=== PATIENT | female | born 1950 | race Caucasian/White ===

== ENCOUNTER 2016-09-23 21:36 | Emergency (ER) | payer MEDICAID ==
[2016-09-23 22:01] VITALS: O2SAT 95
--- NOTE | 2016-09-23 22:13 | ERPHSYRPT ---
- History of Present Illness Time Seen by Provider: 09/23/16 22:09 Source: patient, family Exam Limitations: no limitations Patient Subjective Stated Complaint: per pt's daughter, pt hasnt been eating well since her 1 week ago and has had a recent diagnosis of stage 4 ca 3 weeks ago. has been getting progressively weaker. states pt has not been eating or drinking at all today. Triage Nursing Assessment: pt awake. does not answer questions. is cooperative but delayed. pt ambulate from wheelchair to stretcher with assist of 2. very unstedy gait and unable to get on stretcher by herself. respirations nonlabored with lungs cta. +2 edema to bilat feet and ankles. Physician History: pt is 66 years old with metastatic breast cancer and recent loss of family members and has decreased intake today no n/v or fever , no shortness of breath abd is nontender; she is slow to resond to questions but can follow commands and has no focal neuro deficits. this has been going on several days now. Timing/Duration: day(s) Severity: mild Associated Symptoms: loss of appetite, malaise Allergies/Adverse Reactions: No Known Drug Allergies Allergy (Unverified 09/23/16 22:01) Home Medications: Ferrous Sulfate [Iron] 325 mg PO DAILY 09/23/16 [History] Levothyroxine Sodium 50 Mcg [Synthroid 50 Mcg] 50 mcg PO DAILY 09/23/16 [ History] Mirtazapine [Remeron] 15 mg PO HS 09/23/16 [History] Tramadol HCl 50 mg [Ultram 50 mg] 50 mg PO Q6H PRN PRN 09/23/16 [History] Hx Tetanus, Diphtheria Vaccination/Date Given: No (unknown) Hx Influenza Vaccination/Date Given: Yes Hx Pneumococcal Vaccination/Date Given: No (unknown) Immunizations Up to Date: No (unknown) - Review of Systems Constitutional: Fatigue, Malaise, No Fever, No Chills Eyes: No Symptoms Ears, Nose, & Throat: No Symptoms Respiratory: No Cough, No Dyspnea Cardiac: No Chest Pain, No Edema, No Syncope Abdominal/Gastrointestinal: Appetite Changes, No Abdominal Pain, No Nausea, No Vomiting, No Diarrhea Genitourinary Symptoms: No Dysuria Musculoskeletal: No Back Pain, No Neck Pain Skin: No Rash Neurological: No Dizziness, No Focal Weakness, No Sensory Changes Psychological: No Symptoms Endocrine: No Symptoms All Other Systems: Reviewed and Negative - Past Medical History Pertinent Past Medical History: Yes Respiratory History: Lung Cancer Endocrine Medical History: Thyroid Cancer GI Medical History: Colorectal Cancer Female Reproductive Disorders: Breast Cancer Other Medical History: anemia - Past Surgical History Past Surgical History: Yes Female Surgical History: Section Other Surgical History: port placement approx 2 weeks ago - Social History Smoking Status: Never smoker Exposure to second hand smoke: Yes Drug Use: none Patient Lives Alone: Yes - Nursing Vital Signs Nursing Vital Signs: Initial Vital Signs Temperature 98.3 F Temperature Source Oral Pulse Rate 87 Respiratory Rate 16 Blood Pressure [] 123/48 - Physical Exam General Appearance: no apparent distress, alert Eye Exam: PERRL/EOMI, eyes nml inspection Ears, Nose, Throat Exam: normal ENT inspection, TMs normal, pharynx normal, moist mucous membranes Neck Exam: normal inspection, non-tender, supple, full range of motion Respiratory Exam: normal breath sounds, lungs clear, No respiratory distress Cardiovascular Exam: regular rate/rhythm, normal heart sounds, normal peripheral pulses Gastrointestinal/Abdomen Exam: soft, normal bowel sounds, No tenderness, No mass Pelvic Exam: deferred Rectal Exam: deferred Back Exam: normal inspection, normal range of motion, No CVA tenderness, No vertebral tenderness Extremity Exam: normal inspection, normal range of motion, pelvis stable Neurologic Exam: alert, oriented x 3, cooperative, normal mood/affect, nml cerebellar function, nml station & gait, sensation nml, No motor deficits Skin Exam: normal color, warm, dry, No rash Lymphatic Exam: No adenopathy SpO2: 95 Oxygen Delivery: Room Air - Course Nursing assessment & vital signs reviewed: Yes EKG Interpreted by Me: Sinus Rhythm, NORMAL AXIS, LAFB, Non-specific ST Changes - Radiology Exams Chest X-ray Interpretation: Reviewed by me, Other (effusions) Abdomen X-ray Interpretation: Reviewed by me, Other (scattered bowel gas pattern) Ordered Tests: Active Orders 24 hr Category Date Time Status EKG-ER Only STAT Care 09/23/16 22:13 Active IV Insertion STAT Care 09/23/16 22:13 Active PO Fluid Challenge STAT Care 09/23/16 22:21 Active OBSTR/ACUTE ABDOMEN SERIES Stat Exams 09/23/16 22:17 Taken AMYLASE Stat Lab 09/23/16 22:33 Completed CBC W DIFF Stat Lab 09/23/16 22:33 Completed CMP Stat Lab 09/23/16 22:33 Completed LIPASE Stat Lab 09/23/16 22:33 Completed Lactic Acid Urgent Lab 09/23/16 22:30 Completed MAGNESIUM Stat Lab 09/23/16 22:33 Completed TROPONIN Stat Lab 09/23/16 22:33 Completed UA Stat Lab 09/23/16 23:02 Completed Medication Summary Generic Name Dose Route Start Last Admin Trade Name Freq PRN Reason Stop Dose Admin Sodium Chloride 1,000 mls @ 100 mls/hr 09/23/16 22:15 09/23/16 22:37 Sodium Chloride 0.9% 1000 Ml IV 10/23/16 22:14 100 mls/hr .Q10H MARIA EUGENIA Administration Discontinued Medications Generic Name Dose Route Start Last Admin Trade Name Freq PRN Reason Stop Dose Admin Ondansetron HCl 4 mg 09/23/16 22:21 09/23/16 22:37 Zofran 4 Mg/2 Ml Vial IV 09/23/16 22:22 4 mg STAT ONE Administration Ondansetron HCl Confirm 09/23/16 22:35 Zofran 4 Mg/2 Ml Vial Administered 09/23/16 22:36 Dose 4 mg .ROUTE .STK-MED ONE Lab/Rad Data: Laboratory Result Diagrams 09/23/16 22:33 09/23/16 22:33 Laboratory Results 09/23/16 09/23/16 09/23/16 Range/Units 23:02 22:50 22:33 WBC (4.0-10.5) K/mm3 RBC (4.1-5.4) M/mm3 Hgb (12.0-16.0) gm/dl Hct (35-47) % MCV (78-100) fl MCH (26-32) pg MCHC (32-36) g/dl RDW (11.5-14.0) % Plt Count (150-450) K/mm3 MPV (6-9.5) fl Gran % (36.0-66.0) % Lymphocytes % (24.0-44.0) % Monocytes % (0.0-12.0) % Eosinophils % (0.00-5.0) % Basophils % (0.0-0.4) % Basophils # (0-0.4) Sodium 148 H (136-145) mEq/L Potassium 4.5 (3.5-5.1) mEq/L Chloride 113 H (98-107) mEq/L Carbon Dioxide 32.1 H (21-32) mEq/L Anion Gap 7.4 (5-15) MEQ/L BUN 31 H (9-20) mg/dL Creatinine 1.46 H (0.55-1.30) mg/dl Estimated GFR 38 ML/MIN Glucose 100 (70-110) MG/DL Lactic Acid (0.4-2.0) Calcium 12.6 H* (8.5-10.1) mg/dL Magnesium 2.5 H (1.8-2.4) mg/dL Total Bilirubin 0.9 (0.2-1.0) mg/dL AST 82 H (15-37) U/L ALT 36 (12-78) U/L Alkaline Phosphatase 166 H (46-116) U/L Troponin I < 0.017 (0.000-0.056) ng/ml Serum Total Protein 6.4 (6.4-8.2) gm/dL Albumin 1.8 L (3.4-5.0) g/dL Amylase 87 (25-115) U/L Lipase 483 H (73-393) U/L Ur Collection Type CATH Urine Color YELLOW (YELLOW) Urine Appearance CLOUDY (CLEAR) Urine pH 7.0 (5-6) Ur Specific [place] 1.015 (1.005-1.025) Urine Protein NEGATIVE (Negative) Urine Glucose (UA) NEGATIVE (NEGATIVE) mg/dL Urine Ketones NEGATIVE (NEGATIVE) Urine Nitrite NEGATIVE (NEGATIVE) Urine Bilirubin NEGATIVE (NEGATIVE) Urine Urobilinogen 0.2 (0-1) mg/dL Urine WBC (Auto) NEGATIVE (NEGATIVE) Urine RBC (Auto) NEGATIVE (0-5) Isidro/ul Influenza Type A Ag NEGATIVE (NEGATIVE) Influenza Type B Ag NEGATIVE (NEGATIVE) RSV (PCR) NEGATIVE (Negative) Specimen Received 09/23/16231409/23/16 09/23/16 Range/Units 22:33 22:30 WBC 6.4 (4.0-10.5) K/mm3 RBC 3.46 L (4.1-5.4) M/mm3 Hgb 10.4 L (12.0-16.0) gm/dl Hct 34.0 L (35-47) % MCV 98.3 (78-100) fl MCH 30.0 (26-32) pg MCHC 30.6 L (32-36) g/dl RDW 19.5 H (11.5-14.0) % Plt Count 191 (150-450) K/mm3 MPV 11.5 H (6-9.5) fl Gran % 66.6 H (36.0-66.0) % Lymphocytes % 17.4 L (24.0-44.0) % Monocytes % 5.4 (0.0-12.0) % Eosinophils % 10.1 H (0.00-5.0) % Basophils % 0.5 (0.0-0.4) % Basophils # 0.03 (0-0.4) Sodium (136-145) mEq/L Potassium (3.5-5.1) mEq/L Chloride (98-107) mEq/L Carbon Dioxide (21-32) mEq/L Anion Gap (5-15) MEQ/L BUN (9-20) mg/dL Creatinine (0.55-1.30) mg/dl Estimated GFR ML/MIN Glucose (70-110) MG/DL Lactic Acid 1.1 (0.4-2.0) Calcium (8.5-10.1) mg/dL Magnesium (1.8-2.4) mg/dL Total Bilirubin (0.2-1.0) mg/dL AST (15-37) U/L ALT (12-78) U/L Alkaline Phosphatase (46-116) U/L Troponin I (0.000-0.056) ng/ml Serum Total Protein (6.4-8.2) gm/dL Albumin (3.4-5.0) g/dL Amylase (25-115) U/L Lipase (73-393) U/L Ur Collection Type Urine Color (YELLOW) Urine Appearance (CLEAR) Urine pH (5-6) Ur Specific [place] (1.005-1.025) Urine Protein (Negative) Urine Glucose (UA) (NEGATIVE) mg/dL Urine Ketones (NEGATIVE) Urine Nitrite (NEGATIVE) Urine Bilirubin (NEGATIVE) Urine Urobilinogen (0-1) mg/dL Urine WBC (Auto) (NEGATIVE) Urine RBC (Auto) (0-5) Isidro/ul Influenza Type A Ag (NEGATIVE) Influenza Type B Ag (NEGATIVE) RSV (PCR) (Negative) Specimen Received - Progress Progress: improved, re-examined Progress Note: 09/24/16 01:[address] Park at [facility] and he accepted her for admission to correct calcium abnormality. 09/24/16 01:55 it took us extra time to get hold of transfer center to call us back and we had to recall them. Discussed with Dr.: Other (Dr shah) Will see patient in: hospital (full admit) Counseled pt/family regarding: lab results, diagnosis, need for follow-up, rad results - Departure Time of Disposition: 01:54 Departure Disposition: Home, Transfer Clinical Impression: hypercalcemia with altered mental status, metatstic breast cancer Condition: Good Critical Care Time: No
[2016-09-23] MEDS ORDERED: Sodium Chloride 0.9% 1000 ML 1,000 ML IV SCH (22:15)
[2016-09-23] MEDS ORDERED: Zofran 4 MG/2 ML VIAL IV ONE (22:21)
[2016-09-23] MEDS ORDERED: Sodium Chloride 0.9% 1000 ML 1,000 ML ONE (22:35)
[2016-09-23] MEDS ORDERED: Zofran 4 MG/2 ML VIAL ONE (22:35)
[2016-09-23 22:40] LABS: BASOPHIL % 0.5 % (0.0-0.4); Eosinophil % 10.1 % (0.00-5.0); Granulocytes % 66.6 % (36.0-66.0); Lymphocytes % 17.4 % (24.0-44.0); Mean Cell Volume 98.3 fl (78-100); Mean Platelet Volume 11.5 fl (6-9.5); Monocytes % 5.4 % (0.0-12.0); Platelet Count 191 K/mm3 (150-450); Red Blood Count 3.46 M/mm3 (4.1-5.4); Red Cell Distribution Width 19.5 % (11.5-14.0); White Blood Count 6.4 K/mm3 (4.0-10.5)
[2016-09-23 23:16] LABS: BLOOD UREA NITROGEN 31 mg/dL (9-20); CHLORIDE 113 mEq/L (98-107); Carbon Dioxide 32.1 mEq/L (21-32); Glucose 100 MG/DL (70-110); Potassium 4.5 mEq/L (3.5-5.1); SODIUM 148 mEq/L (136-145)
[2016-09-23 23:17] LABS: ALBUMIN 1.8 g/dL (3.4-5.0); ALKALINE PHOSPHATASE 166 U/L (46-116); ANION GAP 7.4 MEQ/L (5-15); BILIRUBIN,TOTAL 0.9 mg/dL (0.2-1.0); LIPASE 483 U/L (73-393); MAGNESIUM 2.5 mg/dL (1.8-2.4); SGOT/AST 82 U/L (15-37); SGPT/ALT 36 U/L (12-78); Total Protein 6.4 gm/dL (6.4-8.2)
[2016-09-23 23:20] LABS: TROPONIN < 0.017 ng/ml (0.000-0.056)
[2016-09-24 00:16] LABS: COMPLETE URINE MICROSCOPIC? NO; Collection Type CATH
[2016-09-24 01:10] VITALS: BP 123/48; PULSE 87
--- NOTE | 2016-09-24 08:51 | XRAY ---
Indication: Weakness. History of lung, colon, and breast cancer. Comparison: None 2 views of the abdomen demonstrates nonspecific nonobstructed bowel gas pattern with mild scattered colonic fecal debris. No free air. Solid organs unremarkable. Osseous structures intact with mild osteopenia and mild multilevel spinal degenerative changes. Single frontal chest demonstrates bibasilar infiltrates/atelectasis/effusion, right greater than left. Heart is not enlarged. Right-sided Port-A-Cath. Bony thorax intact with mild osteopenia and degenerative changes. Impression: 1. Nonacute nonobstructed abdomen with mild fecal stasis. 2. Bibasilar infiltrates/atelectasis/effusion, right greater than left. Correlate clinically.
== END 2016-09-24 03:15 | disposition short-term general hospital (02) ==
LOC: ED 21:36
DX: E83.52 Hypercalcemia (principal); R41.82 Altered mental status, unspecified; C79.81 Secondary malignant neoplasm of breast
CPT/HCPCS: 36000; 36415; 74022; 80053; 81002; 82150; 83605; 83690; 83735; 84484; 85025; 87631; 93005; 96360; 96374; 99285; J2405; P9612